=== PATIENT | female | born 1960 | race Caucasian/White ===

== ENCOUNTER 2018-10-15 14:19 | Emergency (ER) | payer MEDICAID ==
[2018-10-15 14:28] VITALS: BP 143/79
--- NOTE | 2018-10-15 14:53 | ER Document Report ---
ED Wound - General Chief Complaint: Wound Infection Stated Complaint: ANKLE PAIN Time Seen by Provider: 10/15/18 14:40 Mode of Arrival: Ambulatory Information source: Patient Notes: Chief complaint: Leg wound History of complain:( obtained from----patient) 58 years old female presents today with left lower leg multiple small wound but 1 of them has an ulcer. This been going on for the last few days. She has psoriasis as well of the lesion appears she picked them off, then it subsequently get infected. She also smoker. Smoking for the last 24 years 1 pack a day. Denies any fever chills or other constitutional symptoms Onset: Gradual Duration: Last several months Severity: Mild to moderate Quality: Also Context: As described above Exacerbating factor and relieving factors: None REVIEW OF SYSTEMS: CONSTITUTIONAL : Denies fever, chills, or sweats. Denies recent illness. EENT: Denies eye, ear, throat, or mouth pain or symptoms. Denies nasal or sinus congestion or discharge. Denies throat, tongue, or mouth swelling or difficulty swallowing. CARDIOVASCULAR: Denies chest pain. Denies palpitations or racing or irregular heart beat. Denies ankle edema. RESPIRATORY: Denies cough, cold, or chest congestion. Denies shortness of breath, difficulty breathing, or wheezing. GASTROINTESTINAL: Denies distention. Denies nausea, vomiting, or diarrhea. Denies blood in vomitus, stools, or per rectum. Denies black, tarry stools. Denies constipation. GENITOURINARY: Denies difficulty urinating, painful urination, burning, frequency, blood in urine, or discharge. FEMALE GENITOURINARY: Denies vaginal bleeding, heavy or abnormal periods, irregular periods. Denies vaginal discharge or odor. MUSCULOSKELETAL: Denies back or neck pain or stiffness. Denies joint pain or swelling. SKIN: Denies rash, lesions or sores. HEMATOLOGIC : Denies easy bruising or bleeding. LYMPHATIC: Denies swollen, enlarged glands. NEUROLOGICAL: Denies confusion or altered mental status. Denies passing out or loss of consciousness. Denies dizziness or lightheadedness. Denies headache. Denies weakness or paralysis or loss of use of either side. Denies problems with gait or speech. Denies sensory loss, numbness, or tingling. Denies seizures. PSYCHIATRIC: Denies anxiety or stress. Denies depression, suicidal ideation, or homicidal ideation. ALL OTHER SYSTEMS REVIEWED AND NEGATIVE. PHYSICAL EXAMINATION: GENERAL: Well-appearing, well-nourished and in no acute distress. HEAD: Atraumatic, normocephalic. EYES: Pupils equal round and reactive to light, extraocular movements intact, conjunctiva are normal. ENT: Nares patent, oropharynx clear without exudates. Moist mucous membranes. NECK: Normal range of motion, supple without lymphadenopathy LUNGS: Breath sounds clear to auscultation bilaterally and equal. No wheezes rales or rhonchi. HEART: Regular rate and rhythm without murmurs ABDOMEN: Soft, nontender, nondistended abdomen. No guarding, no rebound. No masses appreciated. Examination of genitals-deferred Musculoskeletal: Normal range of motion, no pitting or edema. No cyanosis. NEUROLOGICAL: Cranial nerves grossly intact. Normal speech, normal gait. Normal sensory, motor exams PSYCH: Normal mood, normal affect. SKIN: Skin over the lower extremity over the left leg shows medial side of the skin shows an ulcer which dime size, satellite lesions also noted. Which is erythematous slightly warm nontender. Could not feel the dorsalis pedis or posterior tibialis pulses. Dictation was performed using [employer] voice recognition software right - Related Data Allergies/Adverse Reactions: No Known Allergies Allergy (Verified 10/15/18 14:23) Past Medical History - Social History Smoking Status: Current Every Day Smoker Frequency of alcohol use: None Drug Abuse: None Lives with: Family Family History: Reviewed & Not Pertinent Patient has suicidal ideation: No Patient has homicidal ideation: No Renal/ Medical History: Denies: Hx Peritoneal Dialysis Psychiatric Medical History: Reports: Hx Bipolar Disorder Past Surgical History: Reports: Hx Orthopedic Surgery - ankle - Immunizations Hx Diphtheria, Pertussis, Tetanus Vaccination: No Review of Systems - Review of Systems Notes: Dictated Physical Exam - Vital signs Vitals: Temp Pulse Resp BP Pulse Ox 98.3 F 75 20 143/79 H 96 10/15/18 14:27 10/15/18 14:27 10/15/18 14:27 10/15/18 14:27 10/15/18 14:27 - Notes Notes: Dictated Course - Re-evaluation Re-evalutation: 10/15/18 14:52 Referred to wound clinic - Vital Signs Vital signs: Temp Pulse Resp BP Pulse Ox 98.3 F 75 20 143/79 H 96 10/15/18 14:27 10/15/18 14:27 10/15/18 14:27 10/15/18 14:27 10/15/18 14:27 Discharge - Discharge Clinical Impression: Trophic ulcer Qualifiers: Non-pressure ulcer stage: unspecified non-pressure ulcer stage Qualified Code(s): L98.499 - Non-pressure chronic ulcer of skin of other sites with unspecified severity Condition: Fair Disposition: HOME, SELF-CARE Instructions: Antibiotic Ointment Protection ([facility]), Wound Infection ([facility]), Delayed Wound Closure ([facility]), Dressing Instructions for Open Wounds ([facility]) Referrals: LOCALMD,NO [Primary Care Provider] - Follow up as needed
== END 2018-10-15 15:00 | disposition home or self-care (01) ==
LOC: ER 14:19
DX: L98.499 Non-pressure chronic ulcer of skin of other sites with unspecified severity (principal); F17.200 Nicotine dependence, unspecified, uncomplicated
CPT/HCPCS: 99283

== ENCOUNTER → 2019-08-02 | Outpatient (CLI) | payer MEDICAID ==
--- NOTE | 2019-08-02 13:10 | WOMENS IMAGING REPORT ---
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 TECHNIQUE: Dynamic and static grayscale images acquired of the abdomen and recorded on PACS. Additio nal selected color Doppler and spectral images recorded. LIMITATIONS: None. FINDINGS: PANCREAS: The visualized portions of the pancreas appear normal. LIVER: Nodular hepatic contour. There is no hepatic mass. LIVER VASCULATURE: Normal directional flow of the main portal vein and hepatic veins. GALLBLADDER: The gallbladder wall measures 2.4 mm in thickness. Within the nondependent portion of t he gallbladder there is an echogenic focus that demonstrates ring down artifact. There is no choleli thiasis, pericholecystic fluid or sludge. ULTRASOUND-DETECTED NASCIMENTO'S SIGN: Negative. INTRAHEPATIC DUCTS AND COMMON DUCT: The common bile duct measures 5.3 mm in diameter. There is no in trahepatic biliary ductal dilatation. INFERIOR VENA CAVA: Normal flow. AORTA: Atherosclerotic irregularity of the abdominal aorta and iliac vessels without aneurysmal dilat ation. RIGHT KIDNEY: The right kidney measures 9.6 cm in length. There is no hydronephrosis. PERITONEAL AND RIGHT PLEURAL SPACE: No ascites or effusions. OTHER: No other findings. IMPRESSION: 1. Nodular contour of the liver are suggestive of cirrhosis. There is no hepatic mass. 2. Findings of adenomyomatosis. TECHNICAL DOCUMENTATION: JOB ID: [id number] [employer]- All Rights Reserved Reading location - IP/workstation name: [email or web address]
== END ==
LOC: WI 08:44
PROVIDERS: ATTEND Physician Assistant
DX: B18.2 Chronic viral hepatitis C (principal); R74.0 Nonspecific elevation of levels of transaminase and lactic acid dehydrogenase [LDH]
CPT/HCPCS: 76705